=== PATIENT | male | born 1980 | race Caucasian/White ===

== ENCOUNTER 2016-07-09 18:25 | Emergency (ER) | payer BC, OTHER ==
[~2016-07-09 18:25] MED LIST: DIAZ-165 PO
[2016-07-09 18:30] VITALS: Ht 185.4 cm
[2016-07-09] MEDS ORDERED: MULT1PAK42 PO (18:54)
[2016-07-09] MEDS ORDERED: KETOROLAC TROMETHAMINE 30 MG/ML VIAL IV STA (18:56)
[2016-07-09] MEDS ORDERED: HYDROmorphone INJ 2 MG/ML SYR/VIAL IV STA (18:56)
[2016-07-09] MEDS ORDERED: DIAZEPAM INJ 5 MG/ML 2 ML CARP IV STA (20:04)
[2016-07-09] MEDS ORDERED: DIAZ5TAB3 PO (21:19)
--- NOTE | 2016-07-09 21:24 | EMERGENCY ROOM VISIT NOTE ---
History Report prepared by Dariel: Hal Rodriguez Under the Supervision of: Dr. Whitney Duarte D.O. First contact with patient: 18:34 Chief Complaint: BACK PAIN Stated Complaint: BACK HURTS,LOTS OF PAIN, CANT WALK History of Present Illness The patient is a 35 year old male who presents to the Emergency Room with complaints of worsening lower back pain beginning today. He states that he injured his back 15 years ago falling off of a roof and has had problems with intermittent pain ever since. He states that he has had problems with pinched nerves, and herniated discs over the past few years. The patient states that he has never had a surgery on his back, and that his only past surgery was to remove a hydrocele as a child. He feels that his current pain is due to excessive physical activity recently, and states that his back muscles have been getting progressively tighter over the past few days. 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 The patient states that he has been experiencing lower back muscle spasms today. He states that he typically has similar symptoms occur once every six months or so, and is usually seen by a chiropractor for relief. He notes that he has only taken half of a Flexeril for his pain, but nothing has improved his symptoms. Source of History: patient Onset: Today Position: back (lower) Timing: worsening Modifying Factors (Relieving): other (none) Note: The patient has experienced lower back muscle spasms. Review of Systems See HPI for pertinent positives & negatives. A total of 10 systems reviewed and were otherwise negative. Past Medical & Surgical Medical Problems: (1) Acute pharyngitis (2) Cellulitis of leg (3) Hydrocele of testis (4) Streptococcal sore throat Family History Patient reports no known family medical history. Social History Smoking Status: Current Every Day Smoker Alcohol Use: none Marital Status: Housing Status: lives with family Occupation Status: employed Current/Historical Medications Scheduled Diazepam (Valium), 5 MG PO QID Multiple Vitamins W/ Minerals (Emergen-C Immune), 1 PKT PO DAILY Allergies Coded Allergies: No Known Allergies (Unverified , 02/11/13) Physical Exam Vital Signs Date Time Temp Pulse Resp B/P Pulse Ox O2 Delivery O2 Flow Rate FiO2 07/09/16 21:45 36.9 97 20 147/94 96 07/09/16 21:33 97 20 147/94 96 Room Air 07/09/16 20:20 99 20 152/91 96 Room Air 07/09/16 18:30 36.9 102 20 164/110 96 Room Air Physical Exam General: Appear uncomfortable. HEENT: Head - normocephalic and atraumatic. Pupils are equal, round, and reactive to light. Extraocular eye muscles are intact and sclera are anicteric. Ears - bilaterally patent canals with noninjected tympanic membranes and no evidence of hemotympanum. Nose - moist nasal mucosa without discharge. Mouth - moist buccal mucosa. Oropharynx is nonerythematous and there is no tonsillar exudate or edema noted. Neck: Supple; no JVD, nuchal rigidity, cervical lymphadenopathy. Heart: Regular rate and rhythm. There is a normal S1 and S2 with no murmurs, clicks, or gallops appreciated. Lungs: Clear to auscultation bilaterally with no wheezes, rales, or rhonchi. Abdomen: Soft, completely nontender, nondistended, with good bowel sounds. There are no palpable pulsatile masses or hepatosplenomegaly. There is no guarding, rigidity, or rebound noted. Back: Moderate paraspinous muscle spasm of the lumbar spine, right side greater than left. Extremities: No evidence of cyanosis, clubbing, or edema. There are easily palpable peripheral pulses. Neuro:The patient is awake and alert, oriented to day, time, and place. Muscle strength is 5/5 in all 4 extremities. 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 There are no cerebellar signs. Medical Decision & Procedures Medications Administered Medications (Trade) Dose Ordered Sig/Coleman Route Start Time Stop Time Status Last Admin Dose Admin Ketorolac Tromethamine (Toradol Inj) 30 mg NOW STAT IV 07/09/16 18:56 07/09/16 18:58 DC 07/09/16 19:13 30 MG Hydromorphone HCl (Dilaudid Inj) 2 mg NOW STAT IV 07/09/16 18:56 07/09/16 18:58 DC 07/09/16 19:13 2 MG Diazepam (Valium Inj) 2.5 mg NOW STAT IV 07/09/16 20:04 07/09/16 20:06 DC 07/09/16 20:16 2.5 MG Procedure Medications ordered include: Dilaudid IV, Toradol IV, Valium IV. ED Course 1835: Past medical records reviewed. The patient was evaluated in room B9. A complete history and physical exam was performed. An IV lock was initiated 1855: Ordered Dilaudid Inj 2 mg IV, Toradol Inj 30 mg IV. 1941: I spoke with the patient. He is not sure how he feels and will attempt to go to the bathroom now. 1949: I reassessed the patient. He rates his pain as a 9/10 after going to the bathroom. 2003: Ordered Valium Inj 2.5 mg IV. 2119: Upon reevaluation, the patient is resting comfortably. I had a lengthy conversation with the patient his with regards to the anatomy and physiology behind a low back strain. We did talk about the possibility of an acute herniated disc. He verbalized agreement of the treatment plan. The patient was discharged home. He was encouraged to return to the emergency department if he developed intractable back pain, if he lost control of his bowels or bladder, or he developed any weakness in his legs. Otherwise, the patient will follow-up with his PCP a couple of days if the pain persists for outpatient MRI of the lumbar spine. Medical Decision The patient is a 35 year old male who presents to the ED with low back pain. Differential diagnosis includes lumbar strain, lumbar disc herniation, discitis , epidural abscess, as well as other etiologies were considered. This is a 35-year-old male who has a long-standing history of intermittent episodes of low back pain. The patient does admit that he has not been taken care of his back and himself the way he normally does. He believes this is contributed to the increased low back pain. He had no acute injury or trauma. He has normal muscle strength in his lower legs and normal reflexes. [place] Drug Monitoring Program Search Results: patient reviewed within database, no issues identified Impression Primary Impression: Low back pain Additional Impression: Spasm of back muscles Scribe Attestation The scribe's documentation has been prepared under my direction and personally reviewed by me in its entirety. I confirm that the note above accurately reflects all work, treatment, procedures, and medical decision making performed by me. Departure Information Dispostion Home / Self-Care Prescriptions Diazepam (VALIUM) 5 Mg Tab 5 MG PO QID for Muscle Spasms, #10 TAB Prov: Whitney Duarte D.O. 07/09/16 Referrals Wilner Garcia D.O. (PCP) Forms HOME CARE DOCUMENTATION FORM, IMPORTANT VISIT INFORMATION Patient Instructions Low Back Pain Self Care, [facility] [employer] Additional Instructions Rest. Ibuprofen - 800mg every 6 hours with food for pain Valium - 1 tab. every 6 hours as a muscle relaxant for the back Please follow up with PCP for MRI of L-spine and to discuss muscle relaxants Problem Qualifiers
[2016-07-09 21:45] VITALS: BP 147/94; PULSE 97; TEMP 36.9; O2SAT 96
== END 2016-07-09 21:46 | disposition home or self-care (01) ==
LOC: C.EDB 18:26
DX: M54.5 Low back pain (principal); M62.830 Muscle spasm of back; F17.200 Nicotine dependence, unspecified, uncomplicated

== ENCOUNTER 2016-12-29 10:53 | Emergency (ER) | payer BC, OTHER ==
[~2016-12-29] VITALS: Ht 188 cm; Wt 120.0 kg
[~2016-12-29 10:53] MED LIST changes: -DIAZ-165 PO; +MULT1PAK42 PO
[2016-12-29 10:56] VITALS: TEMP 36.7; Ht 188 cm; Wt 120.0 kg
[2016-12-29] MEDS ORDERED: CYCL10TA6 PO (11:16)
[2016-12-29] MEDS ORDERED: DIAZEPAM INJ 5 MG/ML 2 ML CARP IV STA (12:01)
[2016-12-29] MEDS ORDERED: HYDROmorphone INJ 1 MG/ML SYR IV STA ×3 (12:01→14:35)
[2016-12-29] MEDS ORDERED: SODIUM CHLORIDE 0.9% 1000ML 1,000 ML IV STA (12:01)
[2016-12-29] MEDS ORDERED: KETOROLAC TROMETHAMINE 30 MG/ML VIAL IV STA (12:01)
[2016-12-29 15:43] VITALS: BP 135/76; PULSE 87; O2SAT 100
[2016-12-29] MEDS ORDERED: DIAZ-165 PO (15:50)
[2016-12-29] MEDS ORDERED: OXYC1TAB3 PO (16:22)
--- NOTE | 2016-12-29 17:52 | EMERGENCY ROOM VISIT NOTE ---
History First contact with patient: 11:35 Chief Complaint: BACK PAIN Stated Complaint: BACK SPASMS History of Present Illness The patient is a 36 year old male who presents to the Emergency Room with complaints of severe lower back spasms and occasional pain radiating into his right posterior thigh. The patient reports a long history of back problems since childhood. He also fell off of a roof several years ago which has caused chronic intermittent back problems. He does have a chiropractor that he sees for his back. He also has seen Dr. Isidro who provides him with 2 month prescriptions for Flexeril. The patient reports that her Flexeril barely helps when he has spasms in his back. The patient admits that he overused his back over the weekend when helping to set up for and help with a weekend event. The patient reports that by Tuesday evening, his back was really painful. When he got home from the event, he laid down to take a nap, and when he awoke, his back was in severe spasm. The patient reports that the last 3 days have been absolutely miserable for him. He has not been able to sleep. He is afraid to eat because he is afraid that trying to get to the bathroom to sit on a toilet will be impossible because of the pain. He has taken upwards of Flexeril 50 mg a day without relief. When his muscle spasms, his legs give out on him. He has not noticed any persistent weakness, foot drop, bladder/bowel incontinence or saddle anesthesias. The patient currently rates his discomfort a 10 out of 10. He denies any recent illnesses, fever, abdominal pain or hematuria. Review of Systems 10 system review was performed and was negative except for pertinent positives and negatives as indicated in history of present illness Past Medical/Surgical History Medical Problems: (1) Acute pharyngitis (2) Cellulitis of leg (3) Chronic back pain (4) Hydrocele of testis (5) Streptococcal sore throat Family History Patient reports no known family medical history. Social History Smoking Status: Never Smoker Alcohol Use: none Marital Status: Housing Status: lives with family Occupation Status: employed Current/Historical Medications Scheduled Cyclobenzaprine Hcl (Flexeril), 10 MG PO TID Diazepam (Valium), 5 MG PO QID Multiple Vitamins W/ Minerals (Emergen-C Immune), 1 PKT PO DAILY Scheduled PRN Oxycodone Ir (Roxicodone Ir), 1-2 TAB PO Q4H PRN for Pain Physical Exam Vital Signs Date Time Temp Pulse Resp B/P (MAP) Pulse Ox O2 Delivery O2 Flow Rate FiO2 12/29/16 15:43 87 20 135/76 100 Room Air 12/29/16 14:13 88 16 132/87 94 Room Air 12/29/16 13:04 94 16 147/97 96 Room Air 12/29/16 10:56 36.7 136 18 93 Room Air Physical Exam CONSTITUTIONAL: Healthy and well nourished. Alert and oriented X 3 with positive affect. The patient appears in moderate discomfort on exam. HEENT: Normocephalic, atraumatic. Pupils equal, round and reactive. NECK: Full active range of motion without discomfort. RESPIRATORY: Clear to auscultation bilaterally with no wheezing, crackles, rhonchi or stridor. CARDIOVASCULAR: Regular rate and rhythm with no murmurs, rubs or gallops. GASTROINTESTINAL: Bowel sounds present in all quadrants. Abdomen is soft and nontender to palpation. MUSCULOSKELETAL: The patient appears to be getting pain in waves. When the patient is in severe pain, he has notable tenderness to palpation and rigidity of the right lumbar paraspinous muscle. He has milder discomfort to palpation of the left paraspinous muscle. Negative logroll. Negative straight leg raise. Ankle plantar/dorsiflexion strength is 5 out of 5 and symmetric bilaterally. Pedal pulses are intact. INTEGUMENTARY: No rash or other significant dermatologic conditions noted. NEUROLOGIC: Cranial nerves II-XII grossly intact. No focal neurologic deficits noted. Lower extremity deep tendon reflexes are 2+ and symmetric bilaterally. Medical Decision & Procedures Medications Administered Medications (Trade) Dose Ordered Sig/Coleman Route Start Time Stop Time Status Last Admin Dose Admin Sodium Chloride 1,000 ml @ 999 mls/hr Q1H1M STAT IV 12/29/16 12:01 12/29/16 13:01 DC 12/29/16 12:15 999 MLS/HR Ketorolac Tromethamine (Toradol Inj) 30 mg NOW STAT IV 12/29/16 12:01 12/29/16 12:03 DC 12/29/16 12:13 30 MG Hydromorphone HCl (Dilaudid Inj) 1 mg NOW STAT IV 12/29/16 12:01 12/29/16 12:03 DC 12/29/16 12:15 1 MG Diazepam (Valium Inj) 2.5 mg ONE STAT IV 12/29/16 12:01 12/29/16 12:03 DC 12/29/16 12:13 2.5 MG Hydromorphone HCl (Dilaudid Inj) 1 mg NOW STAT IV 12/29/16 13:16 12/29/16 13:17 DC 12/29/16 13:26 1 MG Hydromorphone HCl (Dilaudid Inj) 1 mg NOW STAT IV 12/29/16 14:35 12/29/16 14:36 DC 12/29/16 14:47 1 MG ED Course Patient history and physical exam were performed. Nurse's notes were reviewed. Vital signs were reviewed. The patient appears in intermittent discomfort, and physical exam is consistent with lumbar paraspinous muscle spasm. I also reviewed EMR documentation, showing that the patient was here in July of this year with similar presentation. On that visit, he was administered parenteral Dilaudid, Toradol and Valium, along with an outpatient prescription for Valium that the patient reports helped his symptoms more so than Flexeril. IV access was established. The patient was hydrated with a liter normal saline , and received IV Dilaudid, Toradol and Valium. The patient reported minimal relief of his symptoms, and was administered an additional dose of Dilaudid. This reduced his pain to a 6 out of 10, but still had significant discomfort when trying to ambulate. He was administered an additional dose of Dilaudid which further reduced his pain to a 4 out of 10. The patient was advised that it would be impossible to totally alleviate all this pain, and suggested outpatient management. Patient was offered hospitalist evaluation for possible observation status, but the patient reported that he would rather be discharged home. The patient was able to ambulate after his last dose of medication. The patient was provided prescriptions for Valium and OxyIR 5 mg. He was warned about drinking alcohol or driving while taking these medications. Was encouraged to follow-up with his PCP for further reevaluation. Because of the chronicity of his symptoms, I also suggested evaluation for possible physical therapy evaluation and treatment, as well as referral to the [facility], of which the patient was also provided a contact phone number. He was instructed to return for intractable pain or other concerning symptoms such as bladder/bowel incontinence, saddle anesthesias, foot drop or profound lower extremity weakness. The patient was happy with plan of care, and voiced understanding of all discharge instructions. Medical Decision Patient presents to the emergency department with complaint of lumbar spasms. He reports a long history of back spasms. His history and clinical examination are not consistent with an acute compressive neuropathy such as noticed medullaris or cauda equina syndrome. History also is not suggestive of spinal abscess, hematoma, discitis or intra-abdominal etiology. Medication Reconcilliation Current Medication List: was personally reviewed by pa Blood Pressure Screening Patient's blood pressure: Normal blood pressure Impression Primary Impression: Lumbar paraspinal muscle spasm Departure Information Prescriptions Oxycodone Ir (Roxicodone Ir) 5 Mg Tab 1-2 TAB PO Q4H Y for Pain, #15 TAB For Initial Treatment Prov: Arden Albarran PA 12/29/16 Diazepam (Valium) 5 Mg Tab 5 MG PO QID for spasm, #20 TAB Prov: Arden Albarran PA 12/29/16 Referrals No Doctor, Assigned (PCP) Patient Instructions [facility]
== END 2016-12-29 16:10 | disposition home or self-care (01) ==
LOC: C.EDB 10:57 → C.EDC 16:10
DX: M62.830 Muscle spasm of back (principal); Z79.899 Other long term (current) drug therapy